=== PATIENT | male | born 1985 | race Caucasian/White ===

== ENCOUNTER 2020-05-20 10:15 | Emergency (ER) | payer MEDICARE ==
[~2020-05-20] VITALS: Ht 167.6 cm; Wt 72.6 kg
[~2020-05-20 10:15] MED LIST: ALAVERT10 M1 ORAL; ATIVAN1 MG ORAL; BENADRYL50 MG ORAL; DILAUDID4 MG ORAL; DOXYCYCLINE MO100 MG ORAL; IBUPROFEN800 MG ORAL; NAPROSYN500 M1 ORAL; NEURONTIN300 MG ORAL; NORCO 5-325 TA1 EACH ORAL; NORVIR100 MG ORAL; OXANDRIN10 MG ORAL; PREDNISONE20 MG ORAL; PREZISTA400 MG ORAL; TENORMIN25 MG ORAL; TRAMADOL HCL50 MG ORAL; TRUVADA 200 MG1 EAC1 ORAL; VALTREX500 MG ORAL
--- NOTE | 2020-05-20 11:34 | Diagnostic Imaging Report ---
Indications: Chronic right knee pain Technique: Three views of the right knee Comparison: None Findings: No acute fractures. No dislocations. Joint spaces are preserved. No radiopaque foreign body. Normal mineralization. Impression: No acute process
--- NOTE | 2020-05-20 11:35 | Emergency Room Report ---
History of Present Illness General Chief Complaint: Lower Extremity Injury Source: Patient Present Illness HPI This patient states that he has noted knee pain in his right knee after he plays tennis. He states that the pain will then improve. He states if he walks for a long time he will get pain in this right knee. He states that today he was trying to put on a pair of boots when suddenly he felt a "pop" in his right knee and he has had pain ever since. He states the pain is worse with movement and with weightbearing. Denies trauma. He denies recent illness. Denies fever or chills. He denies nausea or vomiting. He has no other complaints. Allergies: Coded Allergies: HYDROMORPHONE (Verified Allergy, Mild, Rash, 02/23/14) COVID-19 Screening Contact w/high risk pt: No Experienced COVID-19 symptoms?: No COVID-19 Testing performed [place]: No Patient History Past Medical History: see triage record, HIV, other - Hx of non-hodgkins lymphoma Social History: Denies: smoking, alcohol use, drug use Reviewed Nursing Documentation: PMH: Agreed; PSxH: Agreed Nursing Documentation-PMH Past Medical History: No History, Except For Hx Cancer: Yes - HODGINS LYMPHOMA Review of Systems All Other Systems: negative except mentioned in HPI Physical Exam Vital Signs Date Time Temp Pulse Resp B/P (MAP) Pulse Ox O2 Delivery O2 Flow Rate FiO2 05/20/20 10:22 98.4 75 17 128/75 (92) 97 Room Air Sp02 EP Interpretation: reviewed, normal General Appearance: no apparent distress, alert, GCS 15, non-toxic Head: normocephalic, atraumatic Eyes: bilateral eye normal inspection ENT: hearing grossly normal, no angioedema, normal voice Neck: normal inspection Respiratory: no respiratory distress, no retraction, no accessory muscle use, speaking full sentences Rectal: deferred Musculoskeletal: normal inspection, normal range of motion, tender - +pain w/ ROM of the R. knee. +pain with movement of the patella. +pain with varus stress. Ant drawer nml. Neurologic: alert, motor strength/tone normal, oriented x3, sensory intact, responsive, speech normal Psychiatric: judgement/insight normal, memory normal, mood/affect normal, no suicidal/homicidal ideation Skin: no rash, normal color Procedures Splinting Splinting : Consent: Verbal Location: R. knee Pre-Made Type: velcro Splint: Knee immobilizer Pre-Proc Neuro Vasc Exam: normal Post-Proc Neuro Vasc Exam: normal Patient Tolerated: Well Complications: None Medical Decision Making Diagnostic Impression: Primary Impression: Injury of ligament of right knee ER Course This patient likely has a ligamentous injury of his right knee. The knee overall is stable. There is no large joint effusion. There is no evidence of infection on physical exam. I do not suspect septic joint do not feel the knee joint aspiration is indicated. As a precaution, the patient was placed in a knee immobilizer and given crutches. The patient will need to be evaluated by orthopedics and possibly undergo an MRI to determine if there is a ACL or MCL or other ligamentous injury or tear. At this time, no emergency medical conditions identified. The patient is given close return precautions and follow-up instructions. Other X-Ray Diagnostic Results Other X-Ray Diagnostic Results : X-Ray ordered: R. knee # of Views/Limited Vs Complete: Complete Indication: Pain EP Interpretation: Yes Interpretation: no fractures Impression: No acute disease Electronically Signed by: Bianca Choudhury DO Last Vital Signs Date Time Temp Pulse Resp B/P (MAP) Pulse Ox O2 Delivery O2 Flow Rate FiO2 05/20/20 10:22 98.4 75 17 128/75 (92) 97 Room Air Status: improved Disposition: HOME, SELF-CARE Condition: Improved Patient Instructions: Knee Sprain Bianca Choudhury DO May 20, 2020 11:35
[2020-05-20] MEDS ORDERED: Ketorolac 60mg Inj IM ONE (11:45)
[2020-05-20] MEDS ORDERED: IBUPROFEN800 MG ORAL (12:08)
[2020-05-20 12:18] VITALS: BP 132/76
== END 2020-05-20 12:18 | disposition home or self-care (01) ==
LOC: EMR 10:40
DX: S89.81XA Other specified injuries of right lower leg, initial encounter (principal); X58.XXXA Exposure to other specified factors, initial encounter; Y93.59 Activity, other involving other sports and athletics played individually; Y92.9 Unspecified place or not applicable; Z85.71 Personal history of Hodgkin lymphoma; Z88.5 Allergy status to narcotic agent
CPT/HCPCS: 96372; 99283